=== PATIENT | male | born 1970 | race Native Hawaiian/Other Pacific Islander ===

== ENCOUNTER 2018-09-28 13:24 | Inpatient (IN) | payer BC ==
[2018-09-28 13:24] VITALS: BMI 23.6
[2018-09-28] MEDS ORDERED: Albuterol-Ipratrop 3 mg / 0.5 (3 ml) UD IH STA (13:51)
--- NOTE | 2018-09-28 13:59 | ED PDOC ---
HPI: Chest Pain Time Seen by Provider: 09/28/18 13:41 Chief Complaint (Nursing): Chest Pain Chief Complaint (Provider): Chest Pain History Per: Patient History/Exam Limitations: no limitations Onset/Duration Of Symptoms: Days (x1 week) Current Symptoms Are (Timing): Still Present Additional Complaint(s): 48 year old male with a history of hypertension, asthma, anemia and alcohol abuse was referred from Urgent Care for chest pain onset 1 week. Patient reports pain is substernal and nonradiating associated with shortness of breath. Bloodwork at Urgent Care from earlier in the week revealed elevated troponin. PMD: none provided Past Medical History Reviewed: Historical Data, Nursing Documentation, Vital Signs Vital Signs: Last Vital Signs Temp 98.6 F 09/28/18 13:26 Pulse 120 H 09/28/18 13:26 Resp 21 09/28/18 13:26 BP 170/91 H 09/28/18 13:26 Pulse Ox 100 09/28/18 13:26 - Medical History PMH: Anemia, Asthma, HTN Denies: Chronic Kidney Disease - Family History Family History: States: Unknown Family Hx - Social History Alcohol: Other (yes, patient has history of alcohol abuse) - Allergies Allergies/Adverse Reactions: Allergies Allergy/AdvReac Type Severity Reaction Status Date / Time No Known Allergies Allergy Verified 11/09/17 22:00 Review of Systems ROS Statement: Except As Marked, All Systems Reviewed And Found Negative Cardiovascular: Positive for: Chest Pain Physical Exam - Reviewed Nursing Documentation Reviewed: Yes Vital Signs Reviewed: Yes - Physical Exam Appears: Positive for: Non-toxic, No Acute Distress Head Exam: Positive for: ATRAUMATIC, NORMOCEPHALIC Skin: Positive for: Normal Color, Warm, Dry Eye Exam: Positive for: Normal appearance, EOMI, PERRL Cardiovascular/Chest: Positive for: Tachycardia, Other (regular rate) Respiratory: Positive for: Wheezing (expiratory wheeze at bases bilaterally) Gastrointestinal/Abdominal: Positive for: Normal Exam, Soft. Negative for: Tenderness Extremity: Positive for: Normal ROM (upper and lower). Negative for: Pedal Edema, Deformity Neurological/Psych: Positive for: Awake, Alert, Oriented (x3) - Laboratory Results Result Diagrams: 09/28/18 14:10 09/28/18 14:10 - ECG ECG Rhythm: Positive for: Sinus Tachycardia (with ST changes 2 3 AVF which are nonspecific) O2 Sat by Pulse Oximetry: 100 (RA) Pulse Ox Interpretation: Normal - Progress Re-evaluation Time: 15:12 Condition: Re-examined (2 units PRBC ordered. KCL IV and PO ordered) - Critical Care Total Time (In Min): 30 Documented Critical Care: Time excludes all time spent performint seperately billable procedures Medical Decision Making Medical Decision Making: Time: 1351 Will obtain repeat Troponin here as well as routine lab work and treat with nebulizers for wheeze in interim. ScribeAttestation: Documented byRashmi Martinez, acting as a scribe for Angel Turner MD. Provider ScribeAttestation: All medical record entries made by the Scribe were at my direction and personally dictated by me. I have reviewed the chart and agree that the record accurately reflects my personal performance of the history, physical exam, medical decision making, and the department course for this patient. I have also personally directed, reviewed, and agree with the discharge instructions and disposition. Disposition - Clinical Impression Clinical Impression: Anemia, History of asthma, Hypokalemia - Patient ED Disposition Is Patient to be Admitted: Yes - Disposition Disposition Time: 15:14 Condition: FAIR Forms: J. Hilburn (Albanian) - Pt Status Changed To: Hospital Disposition Of: Inpatient - Admit Certification Admit to Inpatient:: After my assessment, the patient will require hospitalization for at least two midnights. This is because of the severity of symptoms shown, intensity of services needed, and/or the medical risk in this patient being treated as an outpatient. - POA Present On Arrival: None
[2018-09-28 14:17] LABS: BASO # 0.1 K/uL (0.0-0.2); BASO % 1.6 % (0.0-2.0); EOS # 0.1 K/uL (0.0-0.7); EOS % 2.5 % (0.0-4.0); LYMPH # 0.5 K/uL (1.0-4.3); MEAN CORPUSCULAR HEMOGLOBIN 17.9 pg (27.0-31.0); MEAN CORPUSCULAR HGB CONC 28.9 g/dL (33.0-37.0); MEAN PLATELET VOLUME 8.2 fl (7.2-11.7); MONO # 0.4 K/uL (0.0-0.8); MONO % 10.7 % (0.0-10.0); NEUT # 2.7 K/uL (1.8-7.0); NEUT % 71.2 % (50.0-75.0); NRBC % 0.2 % (0.0-0.0); RBC 3.38 Mil/uL (4.40-5.90); RED CELL DISTRIBUTION WIDTH 25.3 % (11.5-14.5); WHITE BLOOD COUNT 3.8 K/uL (4.8-10.8)
[2018-09-28 14:34] LABS: ALB/GLOB RATIO 0.9 (1.0-2.1); ALBUMIN 3.5 g/dL (3.5-5.0); ALT/SGPT 25 U/L (21-72); AST/SGOT 49 U/L (17-59); BLOOD UREA NITROGEN 5 mg/dl (9-20); CALCIUM 8.2 mg/dL (8.4-10.2); GFR NON-AFRICAN AMERICAN > 60
[2018-09-28] MEDS ORDERED: Potassium CL 10 MEQ/50 ML 100 ML IVPB ONE (14:38)
[2018-09-28] MEDS ORDERED: Potassium Chloride 20 mEq ER Tab PO ONE ×2 (14:38→15:53)
--- NOTE | 2018-09-28 14:48 | RAD ---
Date of service: 09/28/2018 HISTORY: Chest pain COMPARISON: No prior. TECHNIQUE: Chest PA and lateral views FINDINGS: LUNGS: No active pulmonary disease. PLEURA: No significant pleural effusion identified. No pneumothorax apparent. CARDIOVASCULAR: No aortic atherosclerotic calcification present. Normal cardiac size. No pulmonary vascular congestion. OSSEOUS STRUCTURES: Multilevel healed healed upper rib fractures appreciated posterolaterally bilaterally. VISUALIZED UPPER ABDOMEN: Normal. OTHER FINDINGS: None. IMPRESSION: No interval acute cardiopulmonary disease appreciated.
[2018-09-28 14:57] LABS: HEMOGLOBIN 6.1 g/dL (12.0-18.0)
[2018-09-28] MEDS ORDERED: Albuterol-Ipratrop 3 mg / 0.5 (3 ml) UD ONE (15:54)
--- NOTE | 2018-09-28 16:21 | CP.PCM.HP ---
History of Present Illness - History of Present Illness History of Present Illness: 48 y/o M with hx of Asthma presented to the ED after being called by urgent care while at work. He endorses being told that he needed to go to ED right away. As per patient, Past Patient History - Infectious Disease Hx of Infectious Diseases: None - Tetanus Immunizations Tetanus Immunization: Unknown - Past Social History Alcohol: Other (yes, patient has history of alcohol abuse) - CARDIAC Hx Hypertension: Yes - PULMONARY Hx Asthma: Yes - NEUROLOGICAL Hx Neurological Disorder: Yes Hx Dizziness: Yes - HEENT Hx HEENT Problems: No - RENAL Hx Chronic Kidney Disease: No - ENDOCRINE/METABOLIC Hx Endocrine Disorders: No - HEMATOLOGICAL/ONCOLOGICAL Hx Anemia: Yes - INTEGUMENTARY Hx Dermatological Problems: Yes Hx Eczema: Yes - MUSCULOSKELETAL/RHEUMATOLOGICAL Hx Musculoskeletal Disorders: Yes Hx Falls: Yes - GASTROINTESTINAL Hx Gastrointestinal Disorders: No - GENITOURINARY/GYNECOLOGICAL Hx Genitourinary Disorders: No - PSYCHIATRIC Hx Psychophysiologic Disorder: No - SURGICAL HISTORY Hx Surgeries: No - ANESTHESIA Hx Anesthesia: No Meds Allergies/Adverse Reactions: Allergies Allergy/AdvReac Type Severity Reaction Status Date / Time No Known Allergies Allergy Verified 11/09/17 22:00 Results - Vital Signs Recent Vital Signs: Last Vital Signs Temp 98.6 F 09/28/18 13:26 Pulse 120 H 09/28/18 13:26 Resp 21 09/28/18 13:26 BP 170/91 H 09/28/18 13:26 Pulse Ox 100 09/28/18 15:14 - Labs Result Diagrams: 09/28/18 14:10 09/28/18 14:10 Labs: Laboratory Results - last 24 hr 09/28/18 09/28/18 09/28/18 14:10 14:10 15:15 WBC 3.8 L RBC 3.38 L Hgb 6.1 L* Hct 20.9 L MCV 62.0 L MCH 17.9 L MCHC 28.9 L RDW 25.3 H Plt Count 151 MPV 8.2 Neut % (Auto) 71.2 Lymph % (Auto) 14.0 L [place] % (Auto) 10.7 H Eos % (Auto) 2.5 Baso % (Auto) 1.6 Neut # (Auto) 2.7 Lymph # (Auto) 0.5 L [place] # (Auto) 0.4 Eos # (Auto) 0.1 Baso # (Auto) 0.1 Sodium 138 Potassium 2.5 L* Chloride 102 Carbon Dioxide 26 Anion Gap 13 BUN 5 L Creatinine 0.6 L Est GFR ( Amer) > 60 Est GFR (Non-Af Amer) > 60 Random Glucose 121 H Calcium 8.2 L Total Bilirubin 1.3 AST 49 ALT 25 Alkaline Phosphatase 86 Troponin I < 0.0120 Total Protein 7.6 Albumin 3.5 Globulin 4.1 H Albumin/Globulin Ratio 0.9 L Stool Occult Blood Alcohol, Quantitative < 10 BBK History Checked Patient has bt 09/28/18 15:15 WBC RBC Hgb Hct MCV MCH MCHC RDW Plt Count MPV Neut % (Auto) Lymph % (Auto) [place] % (Auto) Eos % (Auto) Baso % (Auto) Neut # (Auto) Lymph # (Auto) [place] # (Auto) Eos # (Auto) Baso # (Auto) Sodium Potassium Chloride Carbon Dioxide Anion Gap BUN Creatinine Est GFR ( Amer) Est GFR (Non-Af Amer) Random Glucose Calcium Total Bilirubin AST ALT Alkaline Phosphatase Troponin I Total Protein Albumin Globulin Albumin/Globulin Ratio Stool Occult Blood Negative Alcohol, Quantitative BBK History Checked
[2018-09-28] MEDS ORDERED: Potassium CL 10 MEQ/50 ML 50 ML ONE (16:22)
--- NOTE | 2018-09-28 16:39 | CP.PCM.HP ---
<SalvadorLida - Last Filed: 09/28/18 18:19> Present on Admission - Present on Admission Any Indicators Present on Admission: No Meds Allergies/Adverse Reactions: Allergies Allergy/AdvReac Type Severity Reaction Status Date / Time diphenhydramine AdvReac DIZZINESS Verified 09/29/18 01:19 [From Benadryl] Results - Vital Signs Recent Vital Signs: Last Vital Signs Temp 98.6 F 09/28/18 13:26 Pulse 120 H 09/28/18 13:26 Resp 21 09/28/18 13:26 BP 170/91 H 09/28/18 13:26 Pulse Ox 100 09/28/18 15:14 - Labs Result Diagrams: 09/28/18 14:10 09/28/18 14:10 Labs: Laboratory Results - last 24 hr 09/28/18 09/28/18 09/28/18 14:10 14:10 15:15 WBC 3.8 L RBC 3.38 L Hgb 6.1 L* Hct 20.9 L MCV 62.0 L MCH 17.9 L MCHC 28.9 L RDW 25.3 H Plt Count 151 MPV 8.2 Neut % (Auto) 71.2 Lymph % (Auto) 14.0 L [place] % (Auto) 10.7 H Eos % (Auto) 2.5 Baso % (Auto) 1.6 Neut # (Auto) 2.7 Lymph # (Auto) 0.5 L [place] # (Auto) 0.4 Eos # (Auto) 0.1 Baso # (Auto) 0.1 Sodium 138 Potassium 2.5 L* Chloride 102 Carbon Dioxide 26 Anion Gap 13 BUN 5 L Creatinine 0.6 L Est GFR ( Amer) > 60 Est GFR (Non-Af Amer) > 60 Random Glucose 121 H Calcium 8.2 L Total Bilirubin 1.3 AST 49 ALT 25 Alkaline Phosphatase 86 Troponin I < 0.0120 Total Protein 7.6 Albumin 3.5 Globulin 4.1 H Albumin/Globulin Ratio 0.9 L Stool Occult Blood Urine Opiates Screen Urine Methadone Screen Ur Barbiturates Screen Ur Phencyclidine Scrn Ur Amphetamines Screen U Benzodiazepines Scrn U Oth Cocaine Metabols U Cannabinoids Screen Alcohol, Quantitative < 10 Blood Type O POSITIVE Antibody Screen Negative BBK History Checked Patient has bt 09/28/18 09/28/18 15:15 17:03 WBC RBC Hgb Hct MCV MCH MCHC RDW Plt Count MPV Neut % (Auto) Lymph % (Auto) [place] % (Auto) Eos % (Auto) Baso % (Auto) Neut # (Auto) Lymph # (Auto) [place] # (Auto) Eos # (Auto) Baso # (Auto) Sodium Potassium Chloride Carbon Dioxide Anion Gap BUN Creatinine Est GFR ( Amer) Est GFR (Non-Af Amer) Random Glucose Calcium Total Bilirubin AST ALT Alkaline Phosphatase Troponin I Total Protein Albumin Globulin Albumin/Globulin Ratio Stool Occult Blood Negative Urine Opiates Screen Negative Urine Methadone Screen Negative Ur Barbiturates Screen Negative Ur Phencyclidine Scrn Negative Ur Amphetamines Screen Negative U Benzodiazepines Scrn Negative U Oth Cocaine Metabols Negative U Cannabinoids Screen Negative Alcohol, Quantitative Blood Type Antibody Screen BBK History Checked Assessment & Plan - Assessment and Plan (Free Text) Assessment: 48 y/o M with hx of Asthma & HTN who presented to the ED after being called by urgent care for abnormal blood work; patient admitted for further management of chest pain, anemia, and hypokalemia. Anemia (acute on chronic) Hgb/Hct- 6.1/20.9 -2 prb ordered -FU AM cbc -Protonix 40mg PO QD -FU abd CT -Admit to telemetry Hypokalemia (acute on chronic) -S/p replacement with K -FU am BMP Chest (r/o acs) -first troponin negative (FU second) HTN (uncontrolled, chronic) -Metoprolol tartrate 25mg PO BID) Asthma (chronic, controlled) -s/p 1 stat duoneb <Yasmin Sherman - Last Filed: 09/28/18 18:24> History of Present Illness - History of Present Illness History of Present Illness: 48 y/o M with hx of Asthma & HTN presented to the ED after being called by urgent care while at work to report to ED immediately because of abnormal labs. Patient endorses going to urgent care one week ago bc he was having substernal chest pain x 1 wk. Chest pain was nonradiating, substernally located, occurred daily, not exacerbated by exertion and unaccompanied by diaphoresis, nausea, vomitting,sob or loc. He reports mother at 70 bc of AR. He denied any cocaine or elicit drug use. PMD: Dr. Graeme Allred PMH/meds: asthma (albuterol prn), HTN (no meds) Allergies: NKA Surghx: denies Famhx: Mother at 70 bc of AR; two aunts bc of AR ED course: P-120, BP-170/91, spo2- 100% on room air [id number] WBC-3.8, Hbg/HCT-6.1/20.1, plt-151 BUN/creatinine- unremarkable K-2.5 FOBT- neg Drug screen- neg Meds: given, Duoneb 3ml IH stat, , protonix 40mg stat, Kcl -20meq PO & 50ml/hr, 2 PRBC ordered Past Patient History - Infectious Disease Hx of Infectious Diseases: None - Tetanus Immunizations Tetanus Immunization: Unknown - Past Social History Alcohol: Other (yes, patient has history of alcohol abuse) - CARDIAC Hx Hypertension: Yes - PULMONARY Hx Asthma: Yes - NEUROLOGICAL Hx Neurological Disorder: Yes Hx Dizziness: Yes - HEENT Hx HEENT Problems: No - RENAL Hx Chronic Kidney Disease: No - ENDOCRINE/METABOLIC Hx Endocrine Disorders: No - HEMATOLOGICAL/ONCOLOGICAL Hx Anemia: Yes - INTEGUMENTARY Hx Dermatological Problems: Yes Hx Eczema: Yes - MUSCULOSKELETAL/RHEUMATOLOGICAL Hx Musculoskeletal Disorders: Yes Hx Falls: Yes - GASTROINTESTINAL Hx Gastrointestinal Disorders: No - GENITOURINARY/GYNECOLOGICAL Hx Genitourinary Disorders: No - PSYCHIATRIC Hx Psychophysiologic Disorder: No - SURGICAL HISTORY Hx Surgeries: No - ANESTHESIA Hx Anesthesia: No Physical Exam - Constitutional Appears: Non-toxic - Head Exam Head Exam: ATRAUMATIC, NORMAL INSPECTION - Eye Exam Eye Exam: EOMI - ENT Exam ENT Exam: Mucous Membranes Dry - Respiratory Exam Respiratory Exam: Clear to Auscultation Bilateral. absent: Respiratory Distress - Cardiovascular Exam Cardiovascular Exam: Tachycardia, +S1, +S2 - GI/Abdominal Exam GI & Abdominal Exam: Normal Bowel Sounds, Soft. absent: Distended, Guarding, Rigid - Extremities Exam Extremities exam: Negative for: calf tenderness - Neurological Exam Neurological exam: Alert, Altered - Psychiatric Exam Psychiatric exam: Normal Mood - Skin Skin Exam: Dry, Intact Results - Vital Signs Recent Vital Signs: Last Vital Signs Temp 98.6 F 09/28/18 13:26 Pulse 120 H 09/28/18 13:26 Resp 21 09/28/18 13:26 BP 170/91 H 09/28/18 13:26 Pulse Ox 100 09/28/18 15:14 - Labs Result Diagrams: 09/28/18 14:10 09/28/18 14:10 Labs: Laboratory Results - last 24 hr 09/28/18 09/28/18 09/28/18 14:10 14:10 15:15 WBC 3.8 L RBC 3.38 L Hgb 6.1 L* Hct 20.9 L MCV 62.0 L MCH 17.9 L MCHC 28.9 L RDW 25.3 H Plt Count 151 MPV 8.2 Neut % (Auto) 71.2 Lymph % (Auto) 14.0 L [place] % (Auto) 10.7 H Eos % (Auto) 2.5 Baso % (Auto) 1.6 Neut # (Auto) 2.7 Lymph # (Auto) 0.5 L [place] # (Auto) 0.4 Eos # (Auto) 0.1 Baso # (Auto) 0.1 Sodium 138 Potassium 2.5 L* Chloride 102 Carbon Dioxide 26 Anion Gap 13 BUN 5 L Creatinine 0.6 L Est GFR ( Amer) > 60 Est GFR (Non-Af Amer) > 60 Random Glucose 121 H Calcium 8.2 L Total Bilirubin 1.3 AST 49 ALT 25 Alkaline Phosphatase 86 Troponin I < 0.0120 Total Protein 7.6 Albumin 3.5 Globulin 4.1 H Albumin/Globulin Ratio 0.9 L Stool Occult Blood Alcohol, Quantitative < 10 BBK History Checked Patient has bt 09/28/18 15:15 WBC RBC Hgb Hct MCV MCH MCHC RDW Plt Count MPV Neut % (Auto) Lymph % (Auto) [place] % (Auto) Eos % (Auto) Baso % (Auto) Neut # (Auto) Lymph # (Auto) [place] # (Auto) Eos # (Auto) Baso # (Auto) Sodium Potassium Chloride Carbon Dioxide Anion Gap BUN Creatinine Est GFR ( Amer) Est GFR (Non-Af Amer) Random Glucose Calcium Total Bilirubin AST ALT Alkaline Phosphatase Troponin I Total Protein Albumin Globulin Albumin/Globulin Ratio Stool Occult Blood Negative Alcohol, Quantitative BBK History Checked <Nolan Jaime - Last Filed: 09/29/18 09:21> Results - Vital Signs Recent Vital Signs: Last Vital Signs Temp 98.7 F 09/29/18 08:06 Pulse 71 09/29/18 09:19 Resp 20 09/29/18 08:06 BP 154/84 H 09/29/18 09:19 Pulse Ox 99 09/29/18 08:06 - Labs Result Diagrams: 09/29/18 06:00 09/29/18 06:00 Labs: Laboratory Results - last 24 hr 09/28/18 09/28/18 09/28/18 14:10 14:10 15:15 WBC 3.8 L RBC 3.38 L Hgb 6.1 L* Hct 20.9 L MCV 62.0 L MCH 17.9 L MCHC 28.9 L RDW 25.3 H Plt Count 151 MPV 8.2 Neut % (Auto) 71.2 Lymph % (Auto) 14.0 L [place] % (Auto) 10.7 H Eos % (Auto) 2.5 Baso % (Auto) 1.6 Neut # (Auto) 2.7 Lymph # (Auto) 0.5 L [place] # (Auto) 0.4 Eos # (Auto) 0.1 Baso # (Auto) 0.1 Retic Count PT INR APTT Sodium 138 Potassium 2.5 L* Chloride 102 Carbon Dioxide 26 Anion Gap 13 BUN 5 L Creatinine 0.6 L Est GFR ( Amer) > 60 Est GFR (Non-Af Amer) > 60 Random Glucose 121 H Calcium 8.2 L Phosphorus Magnesium Iron TIBC % Saturation Ferritin Total Bilirubin 1.3 AST 49 ALT 25 Alkaline Phosphatase 86 Troponin I < 0.0120 Total Protein 7.6 Albumin 3.5 Globulin 4.1 H Albumin/Globulin Ratio 0.9 L Triglycerides Cholesterol LDL Cholesterol Direct HDL Cholesterol Vitamin B12 Stool Occult Blood Urine Opiates Screen Urine Methadone Screen Ur Barbiturates Screen Ur Phencyclidine Scrn Ur Amphetamines Screen U Benzodiazepines Scrn U Oth Cocaine Metabols U Cannabinoids Screen Alcohol, Quantitative < 10 Blood Type O POSITIVE Antibody Screen Negative Crossmatch See Detail BBK History Checked Patient has bt 09/28/18 09/28/18 09/28/18 15:15 17:03 19:24 WBC RBC Hgb Hct MCV MCH MCHC RDW Plt Count MPV Neut % (Auto) Lymph % (Auto) [place] % (Auto) Eos % (Auto) Baso % (Auto) Neut # (Auto) Lymph # (Auto) [place] # (Auto) Eos # (Auto) Baso # (Auto) Retic Count PT INR APTT Sodium Potassium Chloride Carbon Dioxide Anion Gap BUN Creatinine Est GFR ( Amer) Est GFR (Non-Af Amer) Random Glucose Calcium Phosphorus Magnesium Iron TIBC % Saturation Ferritin Total Bilirubin AST ALT Alkaline Phosphatase Troponin I Total Protein Albumin Globulin Albumin/Globulin Ratio Triglycerides Cholesterol LDL Cholesterol Direct HDL Cholesterol Vitamin B12 Stool Occult Blood Negative Negative Urine Opiates Screen Negative Urine Methadone Screen Negative Ur Barbiturates Screen Negative Ur Phencyclidine Scrn Negative Ur Amphetamines Screen Negative U Benzodiazepines Scrn Negative U Oth Cocaine Metabols Negative U Cannabinoids Screen Negative Alcohol, Quantitative Blood Type Antibody Screen Crossmatch BBK History Checked 09/28/18 09/29/18 09/29/18 23:05 06:00 06:00 WBC 4.0 L RBC 3.83 L Hgb 7.8 L Hct 26.2 L MCV 68.3 L D MCH 20.3 L MCHC 29.7 L RDW 29.3 H Plt Count 142 MPV 8.3 Neut % (Auto) 73.9 Lymph % (Auto) 12.6 L [place] % (Auto) 11.1 H Eos % (Auto) 1.4 Baso % (Auto) 1.0 Neut # (Auto) 3.0 Lymph # (Auto) 0.5 L [place] # (Auto) 0.4 Eos # (Auto) 0.1 Baso # (Auto) 0.0 Retic Count PT INR APTT Sodium Potassium Chloride Carbon Dioxide Anion Gap BUN Creatinine Est GFR ( Amer) Est GFR (Non-Af Amer) Random Glucose Calcium Phosphorus 3.8 Magnesium 1.5 L Iron TIBC % Saturation Ferritin Total Bilirubin AST ALT Alkaline Phosphatase Troponin I 0.0180 0.0180 Total Protein Albumin Globulin Albumin/Globulin Ratio Triglycerides 58 Cholesterol 83 LDL Cholesterol Direct 36 HDL Cholesterol 44 Vitamin B12 368 Stool Occult Blood Urine Opiates Screen Urine Methadone Screen Ur Barbiturates Screen Ur Phencyclidine Scrn Ur Amphetamines Screen U Benzodiazepines Scrn U Oth Cocaine Metabols U Cannabinoids Screen Alcohol, Quantitative Blood Type Antibody Screen Crossmatch BBK History Checked 09/29/18 09/29/18 09/29/18 06:00 06:00 06:00 WBC RBC Hgb Hct MCV MCH MCHC RDW Plt Count MPV Neut % (Auto) Lymph % (Auto) [place] % (Auto) Eos % (Auto) Baso % (Auto) Neut # (Auto) Lymph # (Auto) [place] # (Auto) Eos # (Auto) Baso # (Auto) Retic Count 2.3 H PT INR APTT Sodium 136 Potassium 2.4 L* Chloride 102 Carbon Dioxide 23 Anion Gap 13 BUN 3 L Creatinine 0.5 L Est GFR ( Amer) > 60 Est GFR (Non-Af Amer) > 60 Random Glucose 92 Calcium 7.7 L Phosphorus Magnesium Iron 31 L TIBC 373 % Saturation 8 L Ferritin 4.4 L Total Bilirubin 1.5 H AST 37 ALT 22 Alkaline Phosphatase 71 Troponin I Total Protein 6.9 Albumin 3.1 L Globulin 3.8 Albumin/Globulin Ratio 0.8 L Triglycerides Cholesterol LDL Cholesterol Direct HDL Cholesterol Vitamin B12 Stool Occult Blood Urine Opiates Screen Urine Methadone Screen Ur Barbiturates Screen Ur Phencyclidine Scrn Ur Amphetamines Screen U Benzodiazepines Scrn U Oth Cocaine Metabols U Cannabinoids Screen Alcohol, Quantitative Blood Type Antibody Screen Crossmatch BBK History Checked 09/29/18 06:00 WBC RBC Hgb Hct MCV MCH MCHC RDW Plt Count MPV Neut % (Auto) Lymph % (Auto) [place] % (Auto) Eos % (Auto) Baso % (Auto) Neut # (Auto) Lymph # (Auto) [place] # (Auto) Eos # (Auto) Baso # (Auto) Retic Count PT 13.5 H INR 1.2 APTT 32.4 Sodium Potassium Chloride Carbon Dioxide Anion Gap BUN Creatinine Est GFR ( Amer) Est GFR (Non-Af Amer) Random Glucose Calcium Phosphorus Magnesium Iron TIBC % Saturation Ferritin Total Bilirubin AST ALT Alkaline Phosphatase Troponin I Total Protein Albumin Globulin Albumin/Globulin Ratio Triglycerides Cholesterol LDL Cholesterol Direct HDL Cholesterol Vitamin B12 Stool Occult Blood Urine Opiates Screen Urine Methadone Screen Ur Barbiturates Screen Ur Phencyclidine Scrn Ur Amphetamines Screen U Benzodiazepines Scrn U Oth Cocaine Metabols U Cannabinoids Screen Alcohol, Quantitative Blood Type Antibody Screen Crossmatch BBK History Checked Attending/Attestation - Attestation I have personally seen and examined this patient.: Yes I have fully participated in the care of the patient.: Yes I have reviewed all pertinent clinical information: Yes Notes (Text): 09/29/18 09:21 Patient seen and examined with resident. Case discussed and agreed with assessment and plan of management.
[2018-09-28] MEDS ORDERED: Pantoprazole 40 mg EC Tab PO SCH (16:45)
[2018-09-28] MEDS ORDERED: Sodium Chloride 0.9% 1,000 ML IV SCH (16:45)
[2018-09-28] MEDS ORDERED: Iohexol 240 (50 ml) PO ONE (17:21)
[2018-09-28 17:31] LABS: BARBITURATES, UR NEGATIVE (NEGATIVE); BENZODIAZEPINES, UR NEGATIVE (NEGATIVE); OPIATES, UR NEGATIVE (NEGATIVE); PHENCYCLIDINE, UR NEGATIVE (NEGATIVE)
[2018-09-28] MEDS ORDERED: Iohexol 240 (50 ml) ONE (18:09)
--- NOTE | 2018-09-28 19:24 | CARD ---
APPROVED REPORT Date of service: 09/28/2018 EKG Measurement Heart [id number] <Conclusion> Sinus tachycardia Minimal voltage criteria for LVH, may be normal variant Borderline ECG
[2018-09-28] MEDS ORDERED: Iohexol 300 100 ML IJ ONE (20:02)
[2018-09-28] MEDS ORDERED: Sodium Chloride 0.9% 50 ML IV ONE (20:02)
--- NOTE | 2018-09-29 07:22 | CON ---
DATE: 09/28/2018 REFERRING DOCTOR: Nolan Jaime MD. REASON FOR CONSULTATION: Anemia. HISTORY OF PRESENT ILLNESS: This is a 48-year-old male with history of asthma, hypertension, brought in for essentially abnormal labs. The patient was having chest pain, which has also since resolved. Nonradiating epigastric discomfort as well. Denies any drug use. Has no active bleeding. Has anemia. Has no active hematemesis or hematochezia. Currently lying in bed comfortably, in no apparent distress. PAST MEDICAL HISTORY: As above. PAST SURGICAL HISTORY: As above. MEDICATIONS: Have been reviewed. REVIEW OF SYSTEMS: All other systems have been reviewed and negative apart from the HPI. PHYSICAL EXAMINATION: VITAL SIGNS: Here in the hospital grossly unremarkable. GENERAL: This is a pleasant elderly appearing male, lying in bed comfortably, in no apparent distress. HEENT: Head: Normocephalic and atraumatic. Eyes: Pupils are equally reactive to light bilaterally. No conjunctival pallor or icterus. NECK: Supple. Normal range of motion. No lymphadenopathy appreciated. LUNGS: Coarse breath sounds bilaterally. HEART: S1 and S2. Regular rate and rhythm. No murmurs appreciated. ABDOMEN: Soft, nontender. Bowel sounds present. No rebound. No guarding. RECTAL: Deferred. EXTREMITIES: Pulses felt bilaterally. SKIN: Warm, dry, and intact. NEUROLOGIC: A and O x3. LABORATORY DATA: Labs and radiology have been reviewed. WBC 3.8, hemoglobin is 6.1, platelet count of 151. Potassium 2.5. ASSESSMENT AND PLAN: This is a 48-year-old male with anemia. The patient is a little cachectic and concerned for weight loss. We will get a PET scan. The patient is borderline pancytopenic. We will repeat laboratories. We will consider hematology consult if CT scan is unremarkable. Will benefit at some point electively from endoscopic workup including of the colon. We will, for now, advance diet as tolerated, correct electrolyte abnormalities. Await CT result. Thank you for the consult. Malachi Walsh MD/ PhD cc: Nolan Jaime MD [facility] # [id number]
[2018-09-29 07:42] LABS: EOS # 0.1 K/uL (0.0-0.7); EOS % 1.4 % (0.0-4.0); HEMOGLOBIN 7.8 g/dL (12.0-18.0); LYMPH # 0.5 K/uL (1.0-4.3); LYMPH % 12.6 % (20.0-40.0); MEAN CORPUSCULAR HEMOGLOBIN 20.3 pg (27.0-31.0); MEAN CORPUSCULAR HGB CONC 29.7 g/dL (33.0-37.0); MEAN PLATELET VOLUME 8.3 fl (7.2-11.7); MONO # 0.4 K/uL (0.0-0.8); MONO % 11.1 % (0.0-10.0); NEUT % 73.9 % (50.0-75.0); NRBC % 0.3 % (0.0-0.0); RBC 3.83 Mil/uL (4.40-5.90); RED CELL DISTRIBUTION WIDTH 29.3 % (11.5-14.5)
[2018-09-29 07:44] LABS: INR 1.2; PROTHROMBIN TIME 13.5 Seconds (9.8-13.1)
[2018-09-29 07:45] LABS: MEAN CELL VOLUME 68.3 fl (80.0-94.0)
[2018-09-29 07:47] LABS: PARTIAL THROMBOPLASTIN TIME 32.4 Seconds (25.6-37.1)
[2018-09-29 08:11] LABS: TROPONIN I 0.018 ng/mL (0.00-0.120)
[2018-09-29 08:12] LABS: IRON 31 ug/dL (49-181)
[2018-09-29 08:22] LABS: % IRON SATURATION 8 % (20-55); TOTAL IRON BINDING CAPACITY 373 ug/dL (250-450)
[2018-09-29 08:34] LABS: FERRITIN 4.4 ng/Ml (17.9-464)
[2018-09-29 08:40] LABS: ALB/GLOB RATIO 0.8 (1.0-2.1); ALBUMIN 3.1 g/dL (3.5-5.0); ALT/SGPT 22 U/L (21-72); AST/SGOT 37 U/L (17-59); BLOOD UREA NITROGEN 3 mg/dl (9-20); CALCIUM 7.7 mg/dL (8.4-10.2); GFR NON-AFRICAN AMERICAN > 60
--- NOTE | 2018-09-29 08:54 | CP.PCM.CON ---
History of Present Illness - History of Present Illness History of Present Illness: Pt seen orders written.fu;; nopte to follow Past Patient History - Infectious Disease Hx of Infectious Diseases: None - Tetanus Immunizations Tetanus Immunization: Unknown - Past Medical History & Family History Past Medical History?: Yes - Past Social History Smoking Status: Light Smoker < 10 Cigarettes Daily - CARDIAC Hx Hypertension: Yes - PULMONARY Hx Asthma: Yes - NEUROLOGICAL Hx Neurological Disorder: Yes Hx Dizziness: Yes - HEENT Hx HEENT Problems: No - RENAL Hx Chronic Kidney Disease: No - ENDOCRINE/METABOLIC Hx Endocrine Disorders: No - HEMATOLOGICAL/ONCOLOGICAL Hx AIDS: No Hx Anemia: Yes Hx Blood Transfusions: Yes (in [place] 2 years ago) Hx Blood Transfusion Reaction: No Hx Human Immunodeficiency Virus (HIV): No - INTEGUMENTARY Hx Dermatological Problems: Yes Hx Eczema: Yes - MUSCULOSKELETAL/RHEUMATOLOGICAL Hx Musculoskeletal Disorders: Yes Hx Falls: Yes - GASTROINTESTINAL Hx Gastrointestinal Disorders: No - GENITOURINARY/GYNECOLOGICAL Hx Genitourinary Disorders: No - PSYCHIATRIC Hx Psychophysiologic Disorder: No Hx Substance Use: No - SURGICAL HISTORY Hx Surgeries: No - ANESTHESIA Hx Anesthesia: No Meds Allergies/Adverse Reactions: Allergies Allergy/AdvReac Type Severity Reaction Status Date / Time diphenhydramine AdvReac DIZZINESS Verified 09/29/18 01:19 [From Benadryl] - Medications Medications: Current Medications Docusate Sodium (Colace) 100 mg PO BID PRN PRN Reason: Constipation Sodium Chloride (Sodium Chloride 0.9%) 1,000 mls @ 100 mls/hr IV .Q10H [facility] Last Admin: 09/28/18 18:05 Dose: 100 mls/hr Magnesium Sulfate (Magnesium Sulfate 2 Gm/50 Ml Water) 2 gm in 50 mls @ 50 mls/hr IVPB ONCE ONE Stop: 09/29/18 09:59 Potassium Chloride (Potassium Chloride 20 Meq/100 Ml) 100 mls @ 50 mls/hr IV Q2 [facility] Stop: 09/29/18 15:59 Iron Sucrose 100 mg/ Sodium (Chloride) 105 mls @ 105 mls/hr IVPB DAILY [facility] Metoprolol Tartrate (Lopressor) 25 mg PO Q12 [facility] Last Admin: 09/28/18 23:58 Dose: 25 mg Morphine Sulfate (Morphine) 2 mg IVP Q4 PRN PRN Reason: chest pain Nitroglycerin (Nitrostat Sl Tab) 0.4 mg SL Q5M PRN PRN Reason: chest pain Pantoprazole Sodium (Protonix Ec Tab) 40 mg PO DAILY [facility] Results - Vital Signs Recent Vital Signs: Last Vital Signs Temp 98.7 F 09/29/18 08:06 Pulse 71 09/29/18 08:06 Resp 20 09/29/18 08:06 BP 154/84 H 09/29/18 08:06 Pulse Ox 99 09/29/18 08:06 - Labs Result Diagrams: 09/29/18 06:00 09/29/18 06:00 Labs: Laboratory Results - last 24 hr 09/28/18 09/28/18 09/28/18 14:10 14:10 15:15 WBC 3.8 L RBC 3.38 L Hgb 6.1 L* Hct 20.9 L MCV 62.0 L MCH 17.9 L MCHC 28.9 L RDW 25.3 H Plt Count 151 MPV 8.2 Neut % (Auto) 71.2 Lymph % (Auto) 14.0 L Tompkins % (Auto) 10.7 H Eos % (Auto) 2.5 Baso % (Auto) 1.6 Neut # (Auto) 2.7 Lymph # (Auto) 0.5 L Tompkins # (Auto) 0.4 Eos # (Auto) 0.1 Baso # (Auto) 0.1 Retic Count PT INR APTT Sodium 138 Potassium 2.5 L* Chloride 102 Carbon Dioxide 26 Anion Gap 13 BUN 5 L Creatinine 0.6 L Est GFR ( Amer) > 60 Est GFR (Non-Af Amer) > 60 Random Glucose 121 H Calcium 8.2 L Phosphorus Magnesium Iron TIBC % Saturation Ferritin Total Bilirubin 1.3 AST 49 ALT 25 Alkaline Phosphatase 86 Troponin I < 0.0120 Total Protein 7.6 Albumin 3.5 Globulin 4.1 H Albumin/Globulin Ratio 0.9 L Triglycerides Cholesterol LDL Cholesterol Direct HDL Cholesterol Vitamin B12 Stool Occult Blood Urine Opiates Screen Urine Methadone Screen Ur Barbiturates Screen Ur Phencyclidine Scrn Ur Amphetamines Screen U Benzodiazepines Scrn U Oth Cocaine Metabols U Cannabinoids Screen Alcohol, Quantitative < 10 Blood Type O POSITIVE Antibody Screen Negative Crossmatch See Detail BBK History Checked Patient has bt 09/28/18 09/28/18 09/28/18 15:15 17:03 19:24 WBC RBC Hgb Hct MCV MCH MCHC RDW Plt Count MPV Neut % (Auto) Lymph % (Auto) Tompkins % (Auto) Eos % (Auto) Baso % (Auto) Neut # (Auto) Lymph # (Auto) Tompkins # (Auto) Eos # (Auto) Baso # (Auto) Retic Count PT INR APTT Sodium Potassium Chloride Carbon Dioxide Anion Gap BUN Creatinine Est GFR ( Amer) Est GFR (Non-Af Amer) Random Glucose Calcium Phosphorus Magnesium Iron TIBC % Saturation Ferritin Total Bilirubin AST ALT Alkaline Phosphatase Troponin I Total Protein Albumin Globulin Albumin/Globulin Ratio Triglycerides Cholesterol LDL Cholesterol Direct HDL Cholesterol Vitamin B12 Stool Occult Blood Negative Negative Urine Opiates Screen Negative Urine Methadone Screen Negative Ur Barbiturates Screen Negative Ur Phencyclidine Scrn Negative Ur Amphetamines Screen Negative U Benzodiazepines Scrn Negative U Oth Cocaine Metabols Negative U Cannabinoids Screen Negative Alcohol, Quantitative Blood Type Antibody Screen Crossmatch BBK History Checked 09/28/18 09/29/18 09/29/18 23:05 06:00 06:00 WBC 4.0 L RBC 3.83 L Hgb 7.8 L Hct 26.2 L MCV 68.3 L D MCH 20.3 L MCHC 29.7 L RDW 29.3 H Plt Count 142 MPV 8.3 Neut % (Auto) 73.9 Lymph % (Auto) 12.6 L Tompkins % (Auto) 11.1 H Eos % (Auto) 1.4 Baso % (Auto) 1.0 Neut # (Auto) 3.0 Lymph # (Auto) 0.5 L Tompkins # (Auto) 0.4 Eos # (Auto) 0.1 Baso # (Auto) 0.0 Retic Count PT INR APTT Sodium Potassium Chloride Carbon Dioxide Anion Gap BUN Creatinine Est GFR ( Amer) Est GFR (Non-Af Amer) Random Glucose Calcium Phosphorus 3.8 Magnesium 1.5 L Iron TIBC % Saturation Ferritin Total Bilirubin AST ALT Alkaline Phosphatase Troponin I 0.0180 0.0180 Total Protein Albumin Globulin Albumin/Globulin Ratio Triglycerides 58 Cholesterol 83 LDL Cholesterol Direct 36 HDL Cholesterol 44 Vitamin B12 368 Stool Occult Blood Urine Opiates Screen Urine Methadone Screen Ur Barbiturates Screen Ur Phencyclidine Scrn Ur Amphetamines Screen U Benzodiazepines Scrn U Oth Cocaine Metabols U Cannabinoids Screen Alcohol, Quantitative Blood Type Antibody Screen Crossmatch BBK History Checked 09/29/18 09/29/18 09/29/18 06:00 06:00 06:00 WBC RBC Hgb Hct MCV MCH MCHC RDW Plt Count MPV Neut % (Auto) Lymph % (Auto) Tompkins % (Auto) Eos % (Auto) Baso % (Auto) Neut # (Auto) Lymph # (Auto) Tompkins # (Auto) Eos # (Auto) Baso # (Auto) Retic Count 2.3 H PT INR APTT Sodium 136 Potassium 2.4 L* Chloride 102 Carbon Dioxide 23 Anion Gap 13 BUN 3 L Creatinine 0.5 L Est GFR ( Amer) > 60 Est GFR (Non-Af Amer) > 60 Random Glucose 92 Calcium 7.7 L Phosphorus Magnesium Iron 31 L TIBC 373 % Saturation 8 L Ferritin 4.4 L Total Bilirubin 1.5 H AST 37 ALT 22 Alkaline Phosphatase 71 Troponin I Total Protein 6.9 Albumin 3.1 L Globulin 3.8 Albumin/Globulin Ratio 0.8 L Triglycerides Cholesterol LDL Cholesterol Direct HDL Cholesterol Vitamin B12 Stool Occult Blood Urine Opiates Screen Urine Methadone Screen Ur Barbiturates Screen Ur Phencyclidine Scrn Ur Amphetamines Screen U Benzodiazepines Scrn U Oth Cocaine Metabols U Cannabinoids Screen Alcohol, Quantitative Blood Type Antibody Screen Crossmatch BBK History Checked 09/29/18 06:00 WBC RBC Hgb Hct MCV MCH MCHC RDW Plt Count MPV Neut % (Auto) Lymph % (Auto) Tompkins % (Auto) Eos % (Auto) Baso % (Auto) Neut # (Auto) Lymph # (Auto) Tompkins # (Auto) Eos # (Auto) Baso # (Auto) Retic Count PT 13.5 H INR 1.2 APTT 32.4 Sodium Potassium Chloride Carbon Dioxide Anion Gap BUN Creatinine Est GFR ( Amer) Est GFR (Non-Af Amer) Random Glucose Calcium Phosphorus Magnesium Iron TIBC % Saturation Ferritin Total Bilirubin AST ALT Alkaline Phosphatase Troponin I Total Protein Albumin Globulin Albumin/Globulin Ratio Triglycerides Cholesterol LDL Cholesterol Direct HDL Cholesterol Vitamin B12 Stool Occult Blood Urine Opiates Screen Urine Methadone Screen Ur Barbiturates Screen Ur Phencyclidine Scrn Ur Amphetamines Screen U Benzodiazepines Scrn U Oth Cocaine Metabols U Cannabinoids Screen Alcohol, Quantitative Blood Type Antibody Screen Crossmatch BBK History Checked
[2018-09-29] MEDS ORDERED: Magnesium Sulfate 2 gm/50 ml 2 GM/50 ML BAG IVPB ONE (09:00)
[2018-09-29] MEDS: Pantoprazole 40 mg EC Tab PO SCH (09:20)
--- NOTE | 2018-09-29 12:13 | CP.PCM.PN ---
<Yasmin Sherman - Last Filed: 09/29/18 13:46> Subjective - Date & Time of Evaluation Date of Evaluation: 09/29/18 Time of Evaluation: 09:35 - Subjective Subjective: Patient seen and examined this morning with Dr. Jaime. Patient reports feeling better this morning. had no complaints. He denied any f/c/cp, sob, lightheadedn ess or dizziness. Objective - Vital Signs/Intake and Output Vital Signs (last 24 hours): Temp Pulse Resp BP Pulse Ox 98.7 F 71 20 154/84 H 99 09/29/18 08:06 09/29/18 09:19 09/29/18 08:06 09/29/18 09:19 09/29/18 08:06 Intake and Output: 09/29/18 09/29/18 06:59 18:59 Intake Total 650 Balance 650 - Medications Medications: Current Medications Docusate Sodium (Colace) 100 mg PO BID PRN PRN Reason: Constipation Sodium Chloride (Sodium Chloride 0.9%) 1,000 mls @ 100 mls/hr IV .Q10H [facility] Last Admin: 09/28/18 18:05 Dose: 100 mls/hr Potassium Chloride (Potassium Chloride 20 Meq/100 Ml) 100 mls @ 50 mls/hr IV Q2 [facility] Stop: 09/29/18 15:59 Iron Sucrose 200 mg/ Sodium (Chloride) 110 mls @ 110 mls/hr IVPB DAILY [facility] Stop: 10/03/18 09:59 Metoprolol Tartrate (Lopressor) 25 mg PO Q12 [facility] Last Admin: 09/29/18 09:19 Dose: 25 mg Morphine Sulfate (Morphine) 2 mg IVP Q4 PRN PRN Reason: chest pain Nitroglycerin (Nitrostat Sl Tab) 0.4 mg SL Q5M PRN PRN Reason: chest pain Pantoprazole Sodium (Protonix Ec Tab) 40 mg PO DAILY [facility] Last Admin: 09/29/18 09:20 Dose: 40 mg - Labs Labs: 09/29/18 06:00 09/29/18 06:00 PT 13.5 Seconds (9.8-13.1) H 09/29/18 06:00 INR 1.2 09/29/18 06:00 APTT 32.4 Seconds (25.6-37.1) 09/29/18 06:00 - Constitutional Appears: Non-toxic - Head Exam Head Exam: ATRAUMATIC, NORMAL INSPECTION - Eye Exam Eye Exam: EOMI - ENT Exam ENT Exam: Mucous Membranes Dry - Respiratory Exam Respiratory Exam: Clear to Ausculation Bilateral. absent: Respiratory Distress - Cardiovascular Exam Cardiovascular Exam: REGULAR RHYTHM, +S1, +S2 - GI/Abdominal Exam GI & Abdominal Exam: Soft, Normal Bowel Sounds. absent: Guarding, Rigid, Tenderness - Neurological Exam Neurological Exam: Alert, Awake, Oriented x3 - Psychiatric Exam Psychiatric exam: Normal Mood - Skin Skin Exam: Dry Assessment and Plan - Assessment and Plan (Free Text) Assessment: 48 y/o M with hx of Asthma & HTN who presented to the ED after being called by urgent care for abnormal blood work; patient admitted for further management of chest pain, anemia, and hypokalemia. Iron deficiency Anemia (acute on chronic) Hgb/Hct- 6.1/20.9 -s/p 2 prb -AM cbc hgb/hct- 7.8/26.2 -C/wProtonix 40mg PO QD -Awaiting official abd CT -FU immunofication & protein electrophoresis as per Dr. Coombs -GI recs appreciated Hypokalemia (acute on chronic) -S/p replacement with K -K-2.5 initially; repeat 2.4 -Ordered Kcl replacement -FU AM BMP Hypomagnesium -1.5 initially -Magnesium 2g replacement ordered -FU repeat levels Chest pain (likely due to severe anemia, resolved) -troponin x 3 negative HTN (uncontrolled, chronic) -C/w Metoprolol tartrate 25mg PO BID Asthma (chronic, controlled) -s/p 1 stat duoneb <Nolan Jaime D - Last Filed: 09/29/18 14:01> Objective - Vital Signs/Intake and Output Vital Signs (last 24 hours): Temp Pulse Resp BP Pulse Ox 98.1 F 76 20 129/78 99 09/29/18 12:42 09/29/18 12:42 09/29/18 12:42 09/29/18 12:42 09/29/18 12:42 Intake and Output: 09/29/18 09/29/18 06:59 18:59 Intake Total 650 Balance 650 - Medications Medications: Current Medications Docusate Sodium (Colace) 100 mg PO BID PRN PRN Reason: Constipation Sodium Chloride (Sodium Chloride 0.9%) 1,000 mls @ 100 mls/hr IV .Q10H [facility] Last Admin: 09/28/18 18:05 Dose: 100 mls/hr Potassium Chloride (Potassium Chloride 20 Meq/100 Ml) 100 mls @ 50 mls/hr IV Q2 [facility] Stop: 09/29/18 15:59 Iron Sucrose 200 mg/ Sodium (Chloride) 110 mls @ 110 mls/hr IVPB DAILY [facility] Stop: 10/03/18 09:59 Last Admin: 09/29/18 12:26 Dose: 110 mls/hr Metoprolol Tartrate (Lopressor) 25 mg PO Q12 [facility] Last Admin: 09/29/18 09:19 Dose: 25 mg Morphine Sulfate (Morphine) 2 mg IVP Q4 PRN PRN Reason: chest pain Nitroglycerin (Nitrostat Sl Tab) 0.4 mg SL Q5M PRN PRN Reason: chest pain Pantoprazole Sodium (Protonix Ec Tab) 40 mg PO DAILY [facility] Last Admin: 09/29/18 09:20 Dose: 40 mg - Labs Labs: 09/29/18 06:00 09/29/18 06:00 PT 13.5 Seconds (9.8-13.1) H 09/29/18 06:00 INR 1.2 09/29/18 06:00 APTT 32.4 Seconds (25.6-37.1) 09/29/18 06:00 Attending/Attestation - Attestation I have personally seen and examined this patient.: Yes I have fully participated in the care of the patient.: Yes I have reviewed all pertinent clinical information, including history, physical exam and plan: Yes Notes (Text): 09/29/18 14:00 Patient seen and examined with resident. Case discussed and agreed with assessment. CT scan of abdomen offical report still pending.
[2018-09-29] MEDS: Potassium Chloride 20 mEq 100 ML IV SCH ×4 (14:34→19:34)
--- NOTE | 2018-09-29 14:54 | CT ---
Date of service: 09/28/2018 PROCEDURE: CT Abdomen and Pelvis with contrast HISTORY: severe anemia, r/o GI bleed COMPARISON: None. TECHNIQUE: Following oral and intravenous contrast administration, a CT examination of the abdomen and pelvis was performed from the domes of the diaphragms to the symphysis pubis with reformatted datasets provided not only axial but also sagittal and coronal series. Contrast dose: Omnipaque 300, 95 cc Radiation dose: Total exam DLP = 318.05 mGy-cm. This CT exam was performed using one or more of the following dose reduction techniques: Automated exposure control, adjustment of the mA and/or kV according to patient size, and/or use of iterative reconstruction technique. FINDINGS: LOWER THORAX: Unremarkable. LIVER: Borderline hepatomegaly. No mass or intrahepatic biliary dilatation. GALLBLADDER AND BILE DUCTS: Unremarkable. PANCREAS: Unremarkable. No gross lesion or ductal dilatation. SPLEEN: Borderline splenomegaly at 12 0.9 cm without focal mass. ADRENALS: Unremarkable. No mass. KIDNEYS AND URETERS: Unremarkable. No hydronephrosis. No solid mass. VASCULATURE: Unremarkable. No aortic aneurysm. No aortic atherosclerotic calcification or mural plaque present. BOWEL: There is thickening of the ascending colon through the hepatic flexure with prominent submucosal fat in a pattern that may reflect limited acute superimposed over chronic inflammatory bowel process. Affects colitis superimposed over inflammatory bowel disease not excluded and further clinical correlation is advised. No pericolic reaction. Inflammatory bowel process may affect transverse and descending colon segments as well. There is no bowel obstruction and opacified small bowel loops appear unremarkable. There little or no retained fecal material seen in the colon. The stomach is distended with retained gas, food and oral contrast in limited fashion. APPENDIX: No CT evidence of appendicitis. PERITONEUM: Unremarkable. No free fluid. No free air. LYMPH NODES: Unremarkable. No enlarged lymph nodes. BLADDER: Distended but otherwise unremarkable appearing urinary bladder. REPRODUCTIVE: Unremarkable. BONES: No acute fracture. OTHER FINDINGS: None. IMPRESSION: 1. Findings suspicious for inflammatory bowel disease affecting ascending through transverse and descending colonic segments on a chronic basis with potential acute infectious or inflammatory superimposed segmental colitis affecting ascending through hepatic flexure segments. No ascites or pericolic reaction. Clinically correlate further. No bowel obstruction. 2. Borderline hepatic splenomegaly. Preliminary report provided by [employer], 09/28/2018 9:05 p.m..
[2018-09-30 00:30] VITALS: RESP 20
[2018-09-30 06:39] LABS: HEMOGLOBIN 7.8 g/dL (12.0-18.0); MEAN CORPUSCULAR HEMOGLOBIN 20.9 pg (27.0-31.0); MEAN CORPUSCULAR HGB CONC 30.2 g/dL (33.0-37.0); RBC 3.71 Mil/uL (4.40-5.90); RED CELL DISTRIBUTION WIDTH 29.2 % (11.5-14.5); WHITE BLOOD COUNT 5.2 K/uL (4.8-10.8)
[2018-09-30 06:46] LABS: MEAN CELL VOLUME 69.3 fl (80.0-94.0)
[2018-09-30 06:53] LABS: ALB/GLOB RATIO 0.8 (1.0-2.1); ALBUMIN 2.9 g/dL (3.5-5.0); ALT/SGPT 21 U/L (21-72); AST/SGOT 32 U/L (17-59); BLOOD UREA NITROGEN 3 mg/dl (9-20); CALCIUM 7.9 mg/dL (8.4-10.2); GFR NON-AFRICAN AMERICAN > 60
[2018-09-30] MEDS: Pantoprazole 40 mg EC Tab PO SCH (08:34)
[2018-09-30] MEDS ORDERED: Potassium Chloride 20 mEq ER Tab PO ONE (08:50)
[2018-09-30] MEDS: Potassium Chloride 20 mEq 100 ML IV SCH ×3 (09:54→15:39)
--- NOTE | 2018-09-30 15:48 | CP.PCM.PN ---
<Lida Franco - Last Filed: 09/30/18 16:37> Subjective - Date & Time of Evaluation Date of Evaluation: 09/30/18 Time of Evaluation: 15:48 - Subjective Subjective: Patient seen and examined bedside. No new complaints, chest pain and weakness have resolved. Reviewed assessment and plan with patient and he proceeded to state that he will likely not stay late into the evening due to work obligations. Explained the risks of potentially leaving against medical advice, verbally demonstrated understanding. Denies palpitations, dizziness, weakness, chest pain, syncope, new-onset edema, SOB, dysuria, nausea, abdominal pain, cram ping and vomiting. Objective - Vital Signs/Intake and Output Vital Signs (last 24 hours): Temp Pulse Resp BP Pulse Ox 98.0 F 71 20 134/82 95 09/30/18 12:39 09/30/18 12:39 09/30/18 12:39 09/30/18 12:39 09/30/18 12:39 - Medications Medications: Current Medications Docusate Sodium (Colace) 100 mg PO BID PRN PRN Reason: Constipation Sodium Chloride (Sodium Chloride 0.9%) 1,000 mls @ 100 mls/hr IV .Q10H [facility] Last Admin: 09/28/18 18:05 Dose: 100 mls/hr Iron Sucrose 200 mg/ Sodium (Chloride) 110 mls @ 110 mls/hr IVPB DAILY [facility] Stop: 10/03/18 09:59 Last Admin: 09/30/18 08:34 Dose: 110 mls/hr Potassium Chloride (Potassium Chloride 20 Meq/100 Ml) 100 mls @ 50 mls/hr IV Q2 [facility] Stop: 09/30/18 15:59 Last Admin: 09/30/18 15:39 Dose: 50 mls/hr Metoprolol Tartrate (Lopressor) 25 mg PO Q12 [facility] Last Admin: 09/30/18 08:33 Dose: 25 mg Morphine Sulfate (Morphine) 2 mg IVP Q4 PRN PRN Reason: chest pain Nitroglycerin (Nitrostat Sl Tab) 0.4 mg SL Q5M PRN PRN Reason: chest pain Pantoprazole Sodium (Protonix Ec Tab) 40 mg PO DAILY [facility] Last Admin: 09/30/18 08:34 Dose: 40 mg - Labs Labs: 09/30/18 04:30 09/30/18 04:30 PT 13.5 Seconds (9.8-13.1) H 09/29/18 06:00 INR 1.2 09/29/18 06:00 APTT 32.4 Seconds (25.6-37.1) 09/29/18 06:00 - Constitutional Appears: No Acute Distress - Respiratory Exam Respiratory Exam: NORMAL BREATHING PATTERN. absent: Wheezes, Respiratory Distress - Cardiovascular Exam Cardiovascular Exam: REGULAR RHYTHM - GI/Abdominal Exam GI & Abdominal Exam: Soft. absent: Tenderness - Neurological Exam Neurological Exam: Alert, Awake, CN II-XII Intact, Normal Gait, Oriented x3 - Psychiatric Exam Psychiatric exam: Normal Affect, Normal Mood - Skin Skin Exam: Dry, Intact, Normal Color, Warm Assessment and Plan - Assessment and Plan (Free Text) Assessment: 48 y/o M with hx of Asthma & HTN who presented to the ED after being called by urgent care for abnormal blood work; patient admitted for further management of chest pain, anemia, and hypokalemia. Plan: Iron deficiency Anemia (acute on chronic) -Hg/Hct- 7.8/25.7 sp 2 PRBC (admission Hgb/Hct- 6.1/20.9) -C/w Protonix 40mg PO QD -Abd CT: IBD, hepatic splenomegaly -FU immunofication & protein electrophoresis as per Dr. Coombs -RICK schumacher appreciated Hypokalemia (acute on chronic) -S/p replacement with K -K- 2.7 today; 2.5 initially; repeat 2.4 -Ordered Kcl replacement -FU AM BMP Hypomagnesium -2.0, 1.5 initially -s/p Magnesium 2g replacement -FU repeat levels Chest pain (likely due to severe anemia, resolved) -troponin x 3 negative HTN (uncontrolled, chronic) -C/w Metoprolol tartrate 25mg PO BID Asthma (chronic, controlled) -s/p 1 stat duoneb <Nolan Jaime D - Last Filed: 10/01/18 11:45> Objective - Vital Signs/Intake and Output Vital Signs (last 24 hours): Temp Pulse Resp BP Pulse Ox 98.0 F 74 20 149/85 99 09/30/18 20:34 09/30/18 20:34 09/30/18 20:34 09/30/18 20:34 09/30/18 20:34 - Labs Labs: 09/30/18 04:30 09/30/18 04:30 PT 13.5 Seconds (9.8-13.1) H 09/29/18 06:00 INR 1.2 09/29/18 06:00 APTT 32.4 Seconds (25.6-37.1) 09/29/18 06:00 Attending/Attestation - Attestation I have personally seen and examined this patient.: Yes I have fully participated in the care of the patient.: Yes I have reviewed all pertinent clinical information, including history, physical exam and plan: Yes Notes (Text): 10/01/18 11:43 Patient seen and examined with resident. Patient advised but he persisted on wanting to go home. Patient signed out against medical advised.
[2018-09-30 16:05] VITALS: O2SAT 99
[2018-09-30 20:35] VITALS: BP 149/85; PULSE 74; TEMP 98
--- NOTE | 2018-09-30 21:00 | CP.PCM.PCO ---
Assessment/Plan - Assessment and Plan (Free Text) Assessment: Patient signed AMA. Patient was explained about his symptoms, diagnosis and complications in great detail. The patient has the capacity to make this informed decision and understands my explanation of the current medical problem and risks of leaving, including worsening symptoms, and possibly . The patient voluntarily accepts these risks and signed an AMA form documenting our conversation; patient informed to follow up with PMD in 1-2days, The patient was given the opportunity to ask questions and reconsider. The patient was encouraged to return to the ER if symptoms worsen or new symptoms arise. Case discussed with Dr. Jaime
--- NOTE | 2018-10-01 10:29 | PQF ---
PROVIDER RESPONSE TEXT: Asthma is mild intermittent REVIEWER QUERY TEXT: Asthma Specificity and Type Asthma is documented in the Medical Record. Please specify the type and severity of asthma if known. Such as: -- Mild intermittent -- Mild persistent -- Moderate persistent -- Severe persistent -- Exercise induced bronchospasm -- Cough variant asthma -- Other, please specify The patient's Clinical Indicators include: + expiratory wheezing at bases bilaterally in the ER and given Duoneb. Query created by: Xena Vazquez on 10/01/2018 8:23 AM Electronically signed by: Nolan Jaime MD 10/01/2018 10:26 AM
--- NOTE | 2018-10-01 12:08 | CP.PCM.DIS ---
<Lida Franco - Last Filed: 10/01/18 15:19> Provider - Provider Date of Admission: 09/28/18 15:11 Attending physician: Nolan Jaime MD Consults: 09/28/18 16:46 Gastroenterology Consult Stat Comment: Consulting Provider: Malachi Walsh Consulting Physician: Malachi Walsh Reason for Consult: severe anemia 09/29/18 08:28 Hematology Oncology Consult Routine Comment: Consulting Provider: Natalee Coombs Consulting Physician: Natalee Coombs Reason for Consult: severe anemia Time Spent in preparation of Discharge (in minutes): 20 Hospital Course - Lab Results Lab Results: Most Recent Lab Values WBC 5.2 K/uL (4.8-10.8) 09/30/18 04:30 RBC 3.71 Mil/uL (4.40-5.90) L 09/30/18 04:30 Hgb 7.8 g/dL (12.0-18.0) L 09/30/18 04:30 Hct 25.7 % (35.0-51.0) L 09/30/18 04:30 MCV 69.3 fl (80.0-94.0) L 09/30/18 04:30 MCH 20.9 pg (27.0-31.0) L 09/30/18 04:30 MCHC 30.2 g/dL (33.0-37.0) L 09/30/18 04:30 RDW 29.2 % (11.5-14.5) H 09/30/18 04:30 Plt Count 148 K/uL (130-400) 09/30/18 04:30 MPV 8.3 fl (7.2-11.7) 09/29/18 06:00 Neut % (Auto) 73.9 % (50.0-75.0) 09/29/18 06:00 Lymph % (Auto) 12.6 % (20.0-40.0) L 09/29/18 06:00 Routt % (Auto) 11.1 % (0.0-10.0) H 09/29/18 06:00 Eos % (Auto) 1.4 % (0.0-4.0) 09/29/18 06:00 Baso % (Auto) 1.0 % (0.0-2.0) 09/29/18 06:00 Neut # (Auto) 3.0 K/uL (1.8-7.0) 09/29/18 06:00 Lymph # (Auto) 0.5 K/uL (1.0-4.3) L 09/29/18 06:00 Routt # (Auto) 0.4 K/uL (0.0-0.8) 09/29/18 06:00 Eos # (Auto) 0.1 K/uL (0.0-0.7) 09/29/18 06:00 Baso # (Auto) 0.0 K/uL (0.0-0.2) 09/29/18 06:00 Retic Count 2.3 % (0.5-1.5) H 09/29/18 06:00 PT 13.5 Seconds (9.8-13.1) H 09/29/18 06:00 INR 1.2 09/29/18 06:00 APTT 32.4 Seconds (25.6-37.1) 09/29/18 06:00 Sodium 135 mmol/l (132-148) 09/30/18 04:30 Potassium 2.7 MMOL/L (3.6-5.0) L 09/30/18 04:30 Chloride 104 mmol/L (98-107) 09/30/18 04:30 Carbon Dioxide 24 mmol/L (22-30) 09/30/18 04:30 Anion Gap 10 (10-20) 09/30/18 04:30 BUN 3 mg/dl (9-20) L 09/30/18 04:30 Creatinine 0.5 mg/dl (0.8-1.5) L 09/30/18 04:30 Est GFR ( Amer) > 60 09/30/18 04:30 Est GFR (Non-Af Amer) > 60 09/30/18 04:30 Random Glucose 86 mg/dL (75-110) 09/30/18 04:30 Calcium 7.9 mg/dL (8.4-10.2) L 09/30/18 04:30 Phosphorus 3.4 mg/dl (2.5-4.5) 09/30/18 04:30 Magnesium 2.0 MG/DL (1.6-2.3) 09/30/18 04:30 Iron 31 ug/dL (49-181) L 09/29/18 06:00 TIBC 373 ug/dL (250-450) 09/29/18 06:00 % Saturation 8 % (20-55) L 09/29/18 06:00 Ferritin 4.4 ng/Ml (17.9-464) L 09/29/18 06:00 Total Bilirubin 0.9 mg/dl (0.2-1.3) 09/30/18 04:30 AST 32 U/L (17-59) 09/30/18 04:30 ALT 21 U/L (21-72) 09/30/18 04:30 Alkaline Phosphatase 63 U/L (38-126) 09/30/18 04:30 Lactate Dehydrogenase 420 U/L (313-618) 09/29/18 10:00 Troponin I 0.0180 ng/mL (0.00-0.120) 09/29/18 06:00 Total Protein 6.5 G/DL (6.3-8.2) 09/30/18 04:30 Total Protein (PEP) 7.2 g/dL (6.1-8.1) 09/29/18 10:00 Albumin 2.9 g/dL (3.5-5.0) L 09/30/18 04:30 Globulin 3.6 gm/dL (2.2-3.9) 09/30/18 04:30 Albumin/Globulin Ratio 0.8 (1.0-2.1) L 09/30/18 04:30 Triglycerides 58 mg/DL (0-149) 09/29/18 06:00 Cholesterol 83 mg/dL (0-199) 09/29/18 06:00 LDL Cholesterol Direct 36 mg/dL (0-129) 09/29/18 06:00 HDL Cholesterol 44 MG/DL (30-70) 09/29/18 06:00 Vitamin B12 368 pg/mL (239-931) 09/29/18 06:00 Folate 5.0 ng/mL 09/30/18 04:30 TSH 3rd Generation 2.75 mIU/ML (0.46-4.68) 09/30/18 04:30 Ur Random Sodium 162 meq/L 09/30/18 12:55 Ur Random Potassium 8.0 mmol/L 09/30/18 12:55 Stool Occult Blood Negative (NEGATIVE) 09/28/18 19:24 Urine Opiates Screen Negative (NEGATIVE) 09/28/18 17:03 Urine Methadone Screen Negative (NEGATIVE) 09/28/18 17:03 Ur Barbiturates Screen Negative (NEGATIVE) 09/28/18 17:03 Ur Phencyclidine Scrn Negative (NEGATIVE) 09/28/18 17:03 Ur Amphetamines Screen Negative (NEGATIVE) 09/28/18 17:03 U Benzodiazepines Scrn Negative (NEGATIVE) 09/28/18 17:03 U Oth Cocaine Metabols Negative (NEGATIVE) 09/28/18 17:03 U Cannabinoids Screen Negative (NEGATIVE) 09/28/18 17:03 Alcohol, Quantitative < 10 mg/dl (0-10) 09/28/18 14:10 HIV-1 Ab Rapid Screen Non reactive (NON REAC) 09/29/18 10:00 Blood Type O POSITIVE 09/28/18 15:15 Antibody Screen Negative 09/28/18 15:15 Crossmatch See Detail 09/28/18 15:15 BBK History Checked Patient has bt 09/28/18 15:15 - Hospital Course Hospital Course: 48 y/o M with hx of Asthma & HTN who presented to the ED after being called by urgent care for abnormal blood work; patient admitted for further management of chest pain, anemia, and hypokalemia. Hg/Hct on admission 6.1/20.9 - improved to 7.8/24.7 s/p [address]: IBD, hepatic splenomegaly. Electrolytes replaced as necessary. Troponin negative x3, chest pain resolved and was likely secondary to severe anemia. Metoprolol 25 mg PO BID continued for HTN. On day 2 of admission pt signed out AMA due to work obligations. Patient was explained about his symptoms, diagnosis and complications in great detail. The patient has the capacity to make this informed decision and understands my explanation of the current medical problem and risks of leaving, including worsening symptoms, and possibly . The patient voluntarily accepts these risks and signed an AMA form documenting our conversation; patient informed to follow up with PMD in 1- 2days. The patient was given the opportunity to ask questions and reconsider. The patient was encouraged to return to the ER if symptoms worsen or new symptoms arise. Discharge Exam - Head Exam Head Exam: ATRAUMATIC, NORMAL INSPECTION - Respiratory Exam Respiratory Exam: absent: Respiratory Distress - Neurological Exam Neurological exam: Alert, Oriented x3 - Psychiatric Exam Psychiatric exam: Normal Affect, Normal Mood - Skin Skin Exam: Pallor Discharge Plan - Follow Up Plan Condition: FAIR Disposition: AGAINST MEDICAL ADVICE <Nolan Jaime - Last Filed: 10/01/18 16:24> Provider - Provider Date of Admission: 09/28/18 15:11 Attending physician: Nolan Jaime MD Consults: 09/28/18 16:46 Gastroenterology Consult Stat Comment: Consulting Provider: Malachi Walsh Consulting Physician: Malachi Walsh Reason for Consult: severe anemia 09/29/18 08:28 Hematology Oncology Consult Routine Comment: Consulting Provider: Natalee Coombs Consulting Physician: Natalee Coombs Reason for Consult: severe anemia Hospital Course - Lab Results Lab Results: Most Recent Lab Values WBC 5.2 K/uL (4.8-10.8) 09/30/18 04:30 RBC 3.71 Mil/uL (4.40-5.90) L 09/30/18 04:30 Hgb 7.8 g/dL (12.0-18.0) L 09/30/18 04:30 Hct 25.7 % (35.0-51.0) L 09/30/18 04:30 MCV 69.3 fl (80.0-94.0) L 09/30/18 04:30 MCH 20.9 pg (27.0-31.0) L 09/30/18 04:30 MCHC 30.2 g/dL (33.0-37.0) L 09/30/18 04:30 RDW 29.2 % (11.5-14.5) H 09/30/18 04:30 Plt Count 148 K/uL (130-400) 09/30/18 04:30 MPV 8.3 fl (7.2-11.7) 09/29/18 06:00 Neut % (Auto) 73.9 % (50.0-75.0) 09/29/18 06:00 Lymph % (Auto) 12.6 % (20.0-40.0) L 09/29/18 06:00 Routt % (Auto) 11.1 % (0.0-10.0) H 09/29/18 06:00 Eos % (Auto) 1.4 % (0.0-4.0) 09/29/18 06:00 Baso % (Auto) 1.0 % (0.0-2.0) 09/29/18 06:00 Neut # (Auto) 3.0 K/uL (1.8-7.0) 09/29/18 06:00 Lymph # (Auto) 0.5 K/uL (1.0-4.3) L 09/29/18 06:00 Routt # (Auto) 0.4 K/uL (0.0-0.8) 09/29/18 06:00 Eos # (Auto) 0.1 K/uL (0.0-0.7) 09/29/18 06:00 Baso # (Auto) 0.0 K/uL (0.0-0.2) 09/29/18 06:00 Retic Count 2.3 % (0.5-1.5) H 09/29/18 06:00 PT 13.5 Seconds (9.8-13.1) H 09/29/18 06:00 INR 1.2 09/29/18 06:00 APTT 32.4 Seconds (25.6-37.1) 09/29/18 06:00 Sodium 135 mmol/l (132-148) 09/30/18 04:30 Potassium 2.7 MMOL/L (3.6-5.0) L 09/30/18 04:30 Chloride 104 mmol/L (98-107) 09/30/18 04:30 Carbon Dioxide 24 mmol/L (22-30) 09/30/18 04:30 Anion Gap 10 (10-20) 09/30/18 04:30 BUN 3 mg/dl (9-20) L 09/30/18 04:30 Creatinine 0.5 mg/dl (0.8-1.5) L 09/30/18 04:30 Est GFR ( Amer) > 60 09/30/18 04:30 Est GFR (Non-Af Amer) > 60 09/30/18 04:30 Random Glucose 86 mg/dL (75-110) 09/30/18 04:30 Calcium 7.9 mg/dL (8.4-10.2) L 09/30/18 04:30 Phosphorus 3.4 mg/dl (2.5-4.5) 09/30/18 04:30 Magnesium 2.0 MG/DL (1.6-2.3) 09/30/18 04:30 Iron 31 ug/dL (49-181) L 09/29/18 06:00 TIBC 373 ug/dL (250-450) 09/29/18 06:00 % Saturation 8 % (20-55) L 09/29/18 06:00 Ferritin 4.4 ng/Ml (17.9-464) L 09/29/18 06:00 Total Bilirubin 0.9 mg/dl (0.2-1.3) 09/30/18 04:30 AST 32 U/L (17-59) 09/30/18 04:30 ALT 21 U/L (21-72) 09/30/18 04:30 Alkaline Phosphatase 63 U/L (38-126) 09/30/18 04:30 Lactate Dehydrogenase 420 U/L (313-618) 09/29/18 10:00 Troponin I 0.0180 ng/mL (0.00-0.120) 09/29/18 06:00 Total Protein 6.5 G/DL (6.3-8.2) 09/30/18 04:30 Total Protein (PEP) 7.2 g/dL (6.1-8.1) 09/29/18 10:00 Albumin 2.9 g/dL (3.5-5.0) L 09/30/18 04:30 Globulin 3.6 gm/dL (2.2-3.9) 09/30/18 04:30 Albumin/Globulin Ratio 0.8 (1.0-2.1) L 09/30/18 04:30 Triglycerides 58 mg/DL (0-149) 09/29/18 06:00 Cholesterol 83 mg/dL (0-199) 09/29/18 06:00 LDL Cholesterol Direct 36 mg/dL (0-129) 09/29/18 06:00 HDL Cholesterol 44 MG/DL (30-70) 09/29/18 06:00 Vitamin B12 368 pg/mL (239-931) 09/29/18 06:00 Folate 5.0 ng/mL 09/30/18 04:30 TSH 3rd Generation 2.75 mIU/ML (0.46-4.68) 09/30/18 04:30 Ur Random Sodium 162 meq/L 09/30/18 12:55 Ur Random Potassium 8.0 mmol/L 09/30/18 12:55 Stool Occult Blood Negative (NEGATIVE) 09/28/18 19:24 Urine Opiates Screen Negative (NEGATIVE) 09/28/18 17:03 Urine Methadone Screen Negative (NEGATIVE) 09/28/18 17:03 Ur Barbiturates Screen Negative (NEGATIVE) 09/28/18 17:03 Ur Phencyclidine Scrn Negative (NEGATIVE) 09/28/18 17:03 Ur Amphetamines Screen Negative (NEGATIVE) 09/28/18 17:03 U Benzodiazepines Scrn Negative (NEGATIVE) 09/28/18 17:03 U Oth Cocaine Metabols Negative (NEGATIVE) 09/28/18 17:03 U Cannabinoids Screen Negative (NEGATIVE) 09/28/18 17:03 Alcohol, Quantitative < 10 mg/dl (0-10) 09/28/18 14:10 HIV-1 Ab Rapid Screen Non reactive (NON REAC) 09/29/18 10:00 Blood Type O POSITIVE 09/28/18 15:15 Antibody Screen Negative 09/28/18 15:15 Crossmatch See Detail 09/28/18 15:15 BBK History Checked Patient has bt 09/28/18 15:15 Attending/Attestation - Attestation I have personally seen and examined this patient.: Yes I have fully participated in the care of the patient.: Yes I have reviewed all pertinent clinical information, including history, physical exam and plan: Yes Notes (Text): 10/01/18 16:24 Patient seen and examined with resident. Patient signed out against medical advise.
[2018-10-03 06:35] LABS: ALBUMIN (PEP) 3.2 g/dL (3.8-4.8); ALPHA-1-GLOBULIN (PEP) 0.3 g/dL (0.2-0.3)
== END 2018-09-30 21:57 | disposition left against medical advice (07) | DRG 812 ==
LOC: H.ER 13:24 → H.ERHOLD 15:11 → H.TEL 23:37
PROC: 30233N1 Transfusion of Nonautologous Red Blood Cells into Peripheral Vein, Percutaneous Approach (ICD-10-PCS; principal; 2018-09-28)
DX: D50.9 Iron deficiency anemia, unspecified (principal); R64 Cachexia; D61.818 Other pancytopenia; R07.89 Other chest pain; E83.42 Hypomagnesemia; E87.6 Hypokalemia; J45.909 Unspecified asthma, uncomplicated; J45.20 Mild intermittent asthma, uncomplicated; I10 Essential (primary) hypertension; Z79.899 Other long term (current) drug therapy; Z82.49 Family history of ischemic heart disease and other diseases of the circulatory system; F17.210 Nicotine dependence, cigarettes, uncomplicated; F10.10 Alcohol abuse, uncomplicated; L30.9 Dermatitis, unspecified